=== PATIENT | male | born 1945 | race Caucasian/White ===

== ENCOUNTER 2022-10-27 12:09 | Emergency (ER) | payer MEDICARE, SELFPAY ==
[2022-10-27 12:10] VITALS: BP 126/78; PULSE 68; RESP 18; TEMP 36.4; O2SAT 99; BMI 24.4
--- NOTE | 2022-10-27 12:23 | XR_ITS ---
FINAL REPORT CLINICAL HISTORY: fall last week, right elbow swelling COMPARISON: None FINDINGS: Three views of the right elbow were obtained. There is no acute fracture or dislocation. There are mild degenerative changes. Posterior soft tissue swelling is noted. IMPRESSION: No acute bony abnormality. Reviewed, Interpreted and Dictated by Gabriele Clements III, MD Transcribed by Divine Baum Authenticated and [facility]
--- NOTE | 2022-10-27 12:23 | XR_ITS ---
FINAL REPORT CLINICAL HISTORY: fall last week, whole right arm swelling COMPARISON: None FINDINGS: 2 views of the right forearm were obtained. There is no acute fracture or dislocation. The joints are intact. There are no soft tissue abnormalities. IMPRESSION: No acute process. Reviewed, Interpreted and Dictated by Gabriele Clements III, MD Transcribed by Divine Baum Authenticated and [facility]
--- NOTE | 2022-10-27 12:45 | EXP.UTC ---
Discharge Plan Disposition Patient Disposition: Home, Self-Care Condition: Good Prescriptions Prescriptions: No Action metoprolol succinate 50 mg tablet extended release 24 hr PO Entresto 97-103 mg tablet 1 tab PO BID hydrochlorothiazide 50 mg tablet 50 mg PO Entresto 97-103 mg tablet 1 tab PO atorvastatin 10 mg tablet 10 mg PO fluticasone propionate 50 mcg/actuation spray,suspension intranasal tamsulosin 0.4 mg capsule PO omeprazole 20 mg capsule,delayed release(DR/EC) 20 mg PO amiodarone 200 mg tablet 100 mg PO DAILY Xarelto 20 mg tablet 20 mg PO DAILY Rx Instructions: must administer with evening meal Referrals Follow up/Referrals: Provider,MD Ivan [Primary Care Provider] - See instructions Earl Zafar JR, MD [Physician] - See instructions Activity Restrictions/Add. Instructions Additional Instructions/Restrictions: Rest the extremity, Elevate the extremity as tolerated while you are resting. Take tylenol for pain. Follow up with Dr. Zafar (orthopedics) if you continue to have symptoms. I put in a referral but you need to call his office and schedule an appointment. Follow up with your regular doctor. GO TO THE ER FOR ANY WORSENING SYMPTOMS Clinical Impressions Clinical Impression: Contusion of elbow, right, Fall, Superficial abrasion Instructions Patient Instructions: Mupirocin, DI for Contusion, Contusion Discharge ED Provider: Saji Wilder [facility] General Stated complaint: RT arm pain fall@home 10/21 Mode of Arrival: Ambulatory Source of Information: Patient Limitations: No Limitations Time Seen by Provider: 10/27/22 12:45 Description of Symptoms (Recalled from Triage Doc. by RN): Patient states that he fell off of a ladder last Monday and injured his right arm and elbow. HEENT Symptoms (Recalled from RN notes): No Resp Symptoms (Recalled from RN notes): No Skin Symptoms (Recalled from RN notes): No MS Symptoms (Recalled from RN notes): Yes Functional Status (Recalled from RN notes): wnl History of Present Illness Provider Complaint: He states that for the past 4 days he has had right arm pain. He states that he fell down from a ladder and came down on his right arm before his symptoms began. Related Data Home Medications Medication Instructions Recorded Confirmed amiodarone 200 mg tablet 100 mg PO DAILY 10/27/22 atorvastatin 10 mg tablet 10 mg PO 10/27/22 fluticasone propionate 50 intranasal 10/27/22 mcg/actuation nasal spray,suspension hydrochlorothiazide 50 mg tablet 50 mg PO 10/27/22 metoprolol succinate 50 mg mg PO 10/27/22 tablet,extended release 24 hr omeprazole 20 mg capsule,delayed 20 mg PO 10/27/22 release rivaroxaban 20 mg tablet (Xarelto) 20 mg PO DAILY 10/27/22 sacubitril 97 mg-valsartan 103 mg 1 tab PO 10/27/22 tablet (Entresto) sacubitril 97 mg-valsartan 103 mg 1 tab PO BID 10/27/22 tablet (Entresto) tamsulosin 0.4 mg capsule mg PO 10/27/22 Allergies Allergy/AdvReac Type Severity Reaction Status Date / Time TETANUS TOXOID Allergy Unknown FEVER/CHILL Uncoded 10/27/22 11:33 S Worker's Comp Is this a Worker's Comp case?: No [facility] Disclaimer: The information contained in this section may have been updated after the patient was seen, as this information can be updated by other users. Social History Smoking Status: Former smoker alcohol intake: never current occupational status: retired Travel in the last 8 weeks: None ROS Obtained: Yes All systems reviewed & no additional complaints except as documented Constitutional Constitutional: Denies chills and Denies fever(s) Eyes Eyes: Denies eye discharge ENT Ears, Nose, Mouth, and Throat: Denies dizziness, Denies otalgia and Denies sore throat Cardiovascular Cardiovascular: Denies chest pain Respiratory Res
[2022-10-27 13:29] VITALS: BP 126/78; PULSE 68; RESP 18; TEMP 36.4; O2SAT 99
== END 2022-10-27 13:30 | disposition home or self-care (01) ==
PROVIDERS: Emergency Provider Nurse Practitioner Family
DX: S50.01XA Contusion of right elbow, initial encounter (principal); S50.311A Abrasion of right elbow, initial encounter; Z87.891 Personal history of nicotine dependence; W11.XXXA Fall on and from ladder, initial encounter
CPT/HCPCS: 73070; 73090; 99204; 99212; G0463